=== PATIENT | female | born 1990 | race Caucasian/White ===

== ENCOUNTER 2021-01-15 22:01 | Emergency (ER) | payer OTHER, SELFPAY ==
[~2021-01-15] VITALS: Ht 162.6 cm; Wt 81.6 kg
[2021-01-15 22:15] VITALS: BP_SYST 145
--- NOTE | 2021-01-15 22:15 | NUR ---
Patient triaged and placed in waiting room. VSS and patient appears in no acute distress at this time. Awaiting available bed, and MD notified of need for MSE.
--- NOTE | 2021-01-15 22:44 | NUR ---
Patient to ER bed 8 to gown for evaluation. Side rails up. Report given to Radha REED.
--- NOTE | 2021-01-15 23:11 | NUR ---
COVID-19 (rapid and PCR), strep , Flu swabs collected and sent to lab.
--- NOTE | 2021-01-15 23:14 | NUR ---
Patient BIB by family from home. C/O sore throat x today. Patient reported, woke up this morning with bodyache , bilteral earache, sore throat. Hx Graves's disease. A/O,X4, bodyache, bilteral earache, sore throat.
--- NOTE | 2021-01-15 23:28 | NUR ---
ER Dr. Ceja at bedside examining patient.
[2021-01-15 23:50] LABS: STREPTOCOCCUS A SCREEN (RAPID) NEGATIVE (NEGATIVE)
--- NOTE | 2021-01-15 23:50 | NUR ---
# 22 gauge angiocath placed to RIGHT HAND. Use of asceptic technique. Opsite placed over site. Blood return noted. Blood for lab drawn from site. Flushed with 10 cc of normal saline. No evidence of infiltration noted. Patient tolerated well.
[2021-01-16] MEDS: ACETAMINOPHEN 325 MG TABLET PO ONE (00:04)
[2021-01-16] MEDS: ONDANSETRON HCL 4 MG/2 ML VIAL IVP ONE (00:05)
[2021-01-16 00:40] LABS: BASOPHILS # (AUTO) 0.1 K/uL (0.0-0.2); BASOPHILS % (AUTO) 0.4 % (0.0-2.0); EOSINOPHILS # (AUTO) 0.1 K/uL (0.0-0.4); EOSINOPHILS % (AUTO) 0.4 % (0.0-4.0); HEMATOCRIT 40.2 % (36-48); HEMOGLOBIN 13.6 g/dL (12.0-16.0); LYMPHOCYTES # (AUTO) 1.3 K/uL (1.0-5.5); LYMPHOCYTES % (AUTO) 11.2 % (20.5-51.5); MEAN CORPUSCULAR HEMOGLOBIN 29 pg (27-31); MEAN CORPUSCULAR HGB CONC 34 % (32-36); MEAN CORPUSCULAR VOLUME 85 fL (79.0-98.0); MONOCYTES # (AUTO) 0.7 K/uL (0.0-1.0); MONOCYTES % (AUTO) 6.6 % (1.7-9.3); NEUTROPHILS # (AUTO) 9.2 K/uL (1.8-7.7); NEUTROPHILS % (AUTO) 81.4 % (40.0-70.0); PLATELET COUNT (AUTO) 255 K/uL (130-430); RED BLOOD CELL COUNT(AUTO) 4.74 MIL/uL (4.2-6.2); RED CELL DISTRIBUTION WIDTH 12.7 % (9.0-15.0); WHITE BLOOD COUNT (AUTO) 11.4 K/uL (4.8-10.8)
[2021-01-16 00:44] LABS: CALCIUM 8.5 mg/dL (8.4-11.0); CREATININE 0.64 mg/dL (0.55-1.30); POTASSIUM 3.5 mmol/L (3.5-5.1)
[2021-01-16 00:49] LABS: ALBUMIN 3.7 g/dL (3.4-4.8); TOTAL BILIRUBIN 0.9 mg/dL (0.0-1.0)
[2021-01-16] MEDS ORDERED: LIDOCAINE VISCOUS 2%, 15 ML UDC ONE (01:07)
--- NOTE | 2021-01-16 01:10 | NUR ---
Given Lidocaine Viscous as Verbal order by Dr. Ceja.
[2021-01-16] MEDS: LIDOCAINE VISCOUS 2%, 15 ML UDC MM ONE (01:25)
[2021-01-16 01:34] LABS: FREE T4 (FREE THYROXINE) 1.9 ng/dl (0.8-1.5); THYROID STIMULATING HORMONE < 0.01 uIu/mL (0.36-3.74)
--- NOTE | 2021-01-16 02:03 | NUR ---
Dr. Ceja at bedside to explain results and treatment plans.
[2021-01-16 02:18] VITALS: BP_SYST 145
--- NOTE | 2021-01-16 02:18 | NUR ---
Patient given written and verbal discharge instructions and verbalizes understanding. ER MD discussed with patient the results and treatment provided. Patient in stable condition. ID arm band removed. IV catheter removed intact and dressing applied, no active bleeding. No Rx given. Patient educated on pain management and to follow up with PMD. Pain Scale 1/10. Opportunity for questions provided and answered.
[2021-01-16] MEDS ORDERED: KETOROLAC TROMETHAMINE 30 MG VIAL ONE (06:54)
== END 2021-01-16 02:18 | disposition home or self-care (01) ==
LOC: SED 22:01
DX: E05.90 Thyrotoxicosis, unspecified without thyrotoxic crisis or storm (principal); J02.9 Acute pharyngitis, unspecified; R00.0 Tachycardia, unspecified; Z20.822 Contact with and (suspected) exposure to COVID-19; Z79.899 Other long term (current) drug therapy
CPT/HCPCS: 36415; 80053; 83690; 84439; 84443; 85025; 86403; 86710; 87040; 87081; 87426; 96374; 99285; C9803; J1885; J2001; J2405; U0003